=== PATIENT | male | born 1955 | race Caucasian/White ===

== ENCOUNTER 2016-11-25 18:26 | Emergency (ER) | payer BC ==
--- NOTE | 2016-11-25 19:30 | ERNOTE ---
<MansoorCatrachito Jsoe R - Last Filed: 11/25/16 20:26> Syncope ER HPI Stated Complaint: BP ISSUES. WAS UNRESPONSIVE EARLIER Time Seen by Provider: 11/25/16 19:00 Immunizations: IMMUNIZATION HX Immunizations Up to Date Yes History of Influenza Vaccine No Hx Pneumococcal Vaccination Yes Allergies/Adverse Reactions: Allergies No Known Allergies Allergy (Unverified 11/25/16 18:41) Home Medications: HOME MEDICATIONS Aspirin 81 mg PO DAILY 11/25/16 [Last Taken Unknown] Atorvastatin Calcium [Lipitor] 20 mg PO DAILY 11/25/16 [Last Taken Unknown] Clopidogrel Bisulfate [Plavix] 75 mg PO DAILY 11/25/16 [Last Taken Unknown] Hydrochlorothiazide [Hydrodiuril] 25 mg PO DAILY 11/25/16 [Last Taken Unknown] Losartan Potassium [Cozaar] 50 mg PO DAILY 11/25/16 [Last Taken Unknown] Sildenafil Citrate [Viagra] 100 mg PO PRN 11/25/16 [Last Taken Unknown] amLODIPine BESYLATE [Norvasc] 5 mg PO DAILY 11/25/16 [Last Taken Unknown] metFORMIN HCL [Glucophage] 500 mg PO BID 11/25/16 [Last Taken Unknown] ED Progress - Results and Orders Patient's Lab Results:: I have reviewed the patient's lab results. - Vital Signs Patient's Vital Signs:: I have reviewed the patient's vital signs. Vital Signs: Vital Signs 11/25/16 11/25/16 18:32 18:52 Temperature 35.5 C L Pulse Rate 77 87 Respiratory 14 Rate Blood Pressure 120/80 O2 Sat by Pulse 95 Oximetry - Progress/Reassessment Chief Complaint: Syncopal Episode Progress:: Improved Progress Note-Subjective: 11/25/16 20:26 Patient remains stable here in the emergency Department. All lab findings including CBC chemistries and troponin are negative. His syncopal episode obviously was due to the combination of his hypertensive medications, the wine the hot tub and the Viagra and he is encouraged not to do that combination again Departure Clinical Impression: Medication reaction, Syncope and collapse - Departure Disposition: Home self-care Condition: Good Instructions: Syncope, [id number] Additional Instructions: Do not take viagra with wine or use hot tube after taking it. Referrals: Montez Vance MD [Primary Care Provider] - <Rigo Alejandro - Last Filed: 11/26/16 06:25> Syncope ER HPI Date of Service: 11/25/16 Source: patient, family Exam Limitations: no limitations Immunizations: IMMUNIZATION HX Immunizations Up to Date Yes History of Influenza Vaccine No Hx Pneumococcal Vaccination Yes - History of Present Illness Narrative: Recently returned from vacation in [place]. 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 When got home, slept a couple hours and had supper. Then had 2 glasses of wine, took a viagra and spent an hour in there hot tub (102 degrees) . He was then on a bar stool at home, and eventually passed out. His held him up on the bar stool and kept yelling at him to wake up and talk to her. He was very pale and diaphoretic at this point. She then called 911. They came, but he was awake. They left, but he was still diaphoretic and pale, so his brought him here in a private vehicle. He now feels ok. It is of note that he also takes hctz and amlodopine. He has combined wine, viagra and a hot tub in the past without ill effect. Upon arrival in the ER, there was still a drop in BP and a rise in pulse going from supine to sitting position. He also has Type 2 diabetes. Prior Episodes: Present: no prior history Symptoms prior to episode: Present: none Activity at time of episode: Present: sitting Character of event: Present: prolonged (minutes) Location of Injury: Present: none Current Symptoms: Present: back to normal Prior Treament: Denies: recently seen, similar symptoms before, currently on antibiotics Review of Systems - Review of Systems Constitutional: Present: malaise EYE: Present: no symptoms reported ENT: Present: no symptoms reported Respiratory: Present: no symptoms reported Cardiology: Present: no symptoms reported Gastrointestinal/Abdominal: Present: no symptoms reported Genitourinary: Present: no symptoms reported Musculoskeletal: Present: no symptoms reported Skin: Present: no symptoms reported Neurological: Present: no symptoms reported Endocrine: Present: no symptoms reported Hematologic/Lymphatic: Present: no symptoms reported Psych: Present: no symptoms reported All Other Systems: All systems neg except as marked - Patient's Past Medical History Patient History - Medical: Diabetes Type 2 Patient History - Cardiac/Respiratory: CVA/Stroke, Hypertension Patient History - Cancer: No Hx of Cancer Patient History - Surgical Procedures: Colonoscopy, Total Hip Replacement, T & A , Other Patient History - Other: None - Social History Living Situations: spouse Abuse History: No History of abuse Psych History: No pertinent hx Smoking Status: Never smoker Alcohol Use: occasionally Drug Use: none - Immunizations Immunizations Up to Date: Yes Hx Pneumococcal Vaccination: Yes History of Influenza Vaccine: No Physical Exam - Physical Exam General Appearance: Present: wd/wn, alert, no apparent distress Eye Exam: Normal inspection: bilateral, PERRL: bilateral, EOMI: bilateral Ears, Nose, Throat: Present: normal ENT inspection Neck: Present: normal inspection. Absent: carotid bruit, thyromegaly Respiratory: Present: no respiratory distress, normal breath sounds Cardiovascular/Chest: Present: regular rate, rhythm, no murmur, normal peripheral pulses Gastrointestinal/Abdominal: Present: normal bowel sounds, nontender, nondistended, soft, no organomegaly Extremity Exam: Present: normal inspection, no edema Neurological Exam: Present: alert, oriented, normal mood/affect, no motor/ sensory deficits Skin Exam: Present: normal color, warm/dry ED Progress - Results and Orders Patient's Lab Results:: I have reviewed the patient's lab results. - Vital Signs Patient's Vital Signs:: I have reviewed the patient's vital signs. Vital Signs: Vital Signs 11/25/16 11/25/16 18:32 18:52 Temperature 35.5 C L Pulse Rate 77 87 Respiratory 14 Rate Blood Pressure 120/80 O2 Sat by Pulse 95 Oximetry - EKG EKG: NSR, nonspecific ST T wave changes EKG read: Interp. by al - prolonged QT - Transfer of Care Physician Sign Out: Rigo Alejandro Receiving Physician: Catrachito Max Pending Results: Labs Expected Disposition: Discharge
[2016-11-25 19:35] LABS: Hematocrit 43.4 % (42.0-52.0); Hemoglobin 14.5 gm/dL (13.5-18.0); Mean Cell Volume 82.5 fl (78-100); Mean Corpuscular Hemoglobin 27.6 pg (27-31); Mean Corpuscular Hgb Conc 33.4 g/dl (32-36); Mean Platelet Volume 9.8 fl (6.0-9.5); Neutrophil # 5.8 K/mm3 (1.3-6.0); Neutrophil % 68.9 % (42-75.0); Platelet Count 187 K/mm3 (150-450); Red Blood Count 5.26 M/mm3 (4.7-6.0); Red Cell Distribution Width 13.4 % (11.5-14.0); White Blood Count 8.4 K/mm3 (4.0-10.5)
[2016-11-25 19:54] LABS: ALT 55 U/L (19-67); AST 21 U/L (0-48); Albumin * 3.7 gm/dl (3.4-5.0); Alkaline Phosphatase * 100 U/L (50-170); Anion Gap 19.2 mmol/L (6.8-13.8); BUN/Creatinine Ratio 14.7 (9.0-21.6); Bilirubin, Total 0.4 mg/dL (0.0-1.1); Blood Urea Nitrogen 14 mg/dL (6-23); Ca. Corrected For Albumin 9.1 mg/dL (8.4-10.2); Calcium * 9.2 mg/dL (7.9-10.9); Carbon Dioxide 23.9 mmol/L (24-32.6); Chloride 104 mmol/L (97-106); Glucose * 127 mg/dL (70-110); Potassium 3.1 mmol/L (3.4-4.6); Sodium 144 mmol/L (132-142); TSH * 3.293 uIU/mL (0.358-3.74); Total Protein 7.4 gm/dL (6.2-8.2)
[2016-11-25 19:55] LABS: Troponin I Less than 0.017 ng/ml (0.00-0.10)
[2016-11-25 21:58] VITALS: BP 112/67
== END 2016-11-25 20:35 | disposition home or self-care (01) ==
LOC: ER 18:26
DX: T46.7X1A Poisoning by peripheral vasodilators, accidental (unintentional), initial encounter (principal); T51.0X1A Toxic effect of ethanol, accidental (unintentional), initial encounter; Y92.008 Other place in unspecified non-institutional (private) residence as the place of occurrence of the external cause; R55 Syncope and collapse; E11.9 Type 2 diabetes mellitus without complications; I10 Essential (primary) hypertension; Z86.73 Personal history of transient ischemic attack (TIA), and cerebral infarction without residual deficits